=== PATIENT | male | born 1975 | race Caucasian/White ===

== ENCOUNTER 2018-08-20 06:12 | Day surgery (SDC) | payer OTHER ==
[2018-08-18 14:12] VITALS: BMI 27.2
--- NOTE | 2018-08-19 15:40 | HP ---
- Patient Scheduled date of Surgery: 08/20/18 Scheduled Surgical Procedure: Phacoemulsification and cataract extraction with PCIOL Affected Eye: Left Chief Complaint (Indication for surgery): Decreased vision affecting ADLs - Ocular History Other Eye History: Other (gl suspect) Eye Medications: vigamox Previous Eye Surgery: none - Medical History Illnesses: None Current Medications: Ambulatory Orders NK [No Known Home Medication] 08/18/18 Allergies/Adverse Reactions: Allergies Allergy/AdvReac Type Severity Reaction Status Date / Time No Known Allergies Allergy Verified 08/18/18 14:07 Ocular Examination - Best Corrected Visual Acuity Distance: Right eye: 20/20 Distance: Left eye: cf 4' - External/Slit Lamp Examination Abnormalities: none - Intraocular Pressure Intraocular Pressure - Right eye: 17 Intraocular Pressure-Left eye: 17 - Lens Lens: 1+ NS 1+ PSC 3-4+ ASC - Vitreous/Retina Vitreous/Retina: C:D 0.3 m/v wnl hazy view of periphery - Special Examination M - Right eye: -2.50 M - Left eye: -5.50 K - Right eye: 41/41.75 x 92 K - Left eye: 41/41.5 x 85 AL - Right eye: 25.26 AL - Left eye: 25.45 IOL bag: +20.0 D AUOOTO for myopia IOL sulcus: +19.0 MN60AC IOL AC: +16.5 AUOOTO - Impression Impression: Cataract Left Eye (ASC) - Plan Plan: Phacoemulsification and cataract extraction - IOL Left eye Post-hospital care will be provided in office on: 08/21/18
[2018-08-20] MEDS ORDERED: TROPICAMIDE 1% OPHTH SOLN 15 ML BOTTLE ONE (06:29)
[2018-08-20] MEDS ORDERED: CIPROFLOXACIN HCL 0.3% OPHTH 2.5ML BOTTLE ONE (06:29)
[2018-08-20] MEDS ORDERED: PHENYLEPHRINE 2.5% OPHTH SOLN 15 ML BOTTLE ONE (06:29)
[2018-08-20] MEDS ORDERED: KETOROLAC TROMETHAMINE 0.5% EYE DROP 1 DROP DROPS ONE (06:30)
[2018-08-20 06:42] VITALS: TEMP 97.9
[2018-08-20] MEDS: CIPROFLOXACIN HCL 0.3% OPHTH 2.5ML BOTTLE OP SCH ×2 (07:01→07:14)
[2018-08-20] MEDS: KETOROLAC TROMETHAMINE 0.5% EYE DROP 1 DROP DROPS OP SCH ×2 (07:01→07:14)
[2018-08-20] MEDS: PHENYLEPHRINE 2.5% OPHTH SOLN 15 ML BOTTLE OP SCH ×2 (07:01→07:14)
[2018-08-20] MEDS: TROPICAMIDE 1% OPHTH SOLN 15 ML BOTTLE OP SCH ×2 (07:01→07:14)
[2018-08-20] MEDS ORDERED: ACETYLCHOLINE 1:100 INTRA-OCUL 20 MG/2 ML KIT ONE (07:03)
[2018-08-20] MEDS ORDERED: CHONDROITIN SU A/HYALUR SOD 1 KIT ONE ×2 (07:03→08:47)
[2018-08-20] MEDS ORDERED: TOBRAMYCIN/DEXAMETHASONE OPHTH. OINTMENT 1 TUBE ONE (07:06)
[2018-08-20] MEDS ORDERED: LIDOCAINE HCL 2% JELLY (5 ML/TUBE) ONE (07:06)
[2018-08-20] MEDS ORDERED: LIDOCAINE HCL/PF 1% SDV 5ML VIAL ONE (07:07)
[2018-08-20] MEDS ORDERED: POVIDONE-IODINE 5% OPHTHALMIC PREP 30 ML SOLUTION ONE (07:07)
[2018-08-20] MEDS ORDERED: TRYPAN BLUE 0.5 ML DISP.SYRIN ONE (07:07)
[2018-08-20] MEDS ORDERED: EPINEPHrine/PF 1 MG/1 ML (1:1,000) AMPULE ONE ×2 (07:08→08:18)
[2018-08-20] MEDS ORDERED: MIDAZOLAM HCL 2 MG/2 ML SINGLE DOSE VIAL ONE ×2 (07:15→07:34)
--- NOTE | 2018-08-20 07:16 | HP ---
History & Physical Update - History History: No Change - Physical Physical: No Change - Assessment Assessment: No Change - Plan Plan: No Change (H and P reviewed from 08/13/[address] You, no changes)
[2018-08-20] MEDS ORDERED: ACETAMINOPHEN 325 MG TABLET (FP) PO PRN (07:30)
[2018-08-20] MEDS ORDERED: LIDOCAINE HCL 2% JELLY (5 ML/TUBE) TP ONE (07:35)
[2018-08-20] MEDS ORDERED: POVIDONE-IODINE 5% OPHTHALMIC PREP 30 ML SOLUTION OS ONE (07:40)
[2018-08-20] MEDS ORDERED: LIDOCAINE HCL 1% PRESERVATIVE FREE - 30ML VIAL IO ONE (07:47)
[2018-08-20] MEDS ORDERED: BSS (NA/CA/MG/K) BALANCED SALT SOLUTION OPHTH SOLN 15 ML BOTTLE IO ONE (07:47)
[2018-08-20] MEDS ORDERED: CHONDROITIN SU A/HYALUR SOD 1 KIT IO ONE ×3 (07:49→07:51)
[2018-08-20] MEDS ORDERED: TRYPAN BLUE 0.5 ML DISP.SYRIN TP ONE (07:50)
[2018-08-20] MEDS ORDERED: TOBRAMYCIN 0.3% OPHTH OINT 3.5 GM OS ONE (07:51)
[2018-08-20] MEDS ORDERED: EPINEPHrine/PF 1 MG/1 ML (1:1,000) AMPULE SQ ONE ×2 (07:51)
[2018-08-20] MEDS ORDERED: BSS (NA/CA/MG/K) BALANCED SALT SOLUTION OPHTH SOLN 15 ML BOTTLE OS ONE (07:59)
[2018-08-20] MEDS ORDERED: TETRACAINE 0.5% OPHTH SOLN 2 ML BOTTLE ONE ×2 (08:18→08:51)
--- NOTE | 2018-08-20 08:36 | OP ---
Ophthalmology Operative Note Pre-Operative Diagnosis: Cataract (Anterior subcapsular) Affected Eye: Left Operation: Phacoemulsification and cataract extraction with PCIOL (using 1:10, 000 epinephrine and trypan blue) Post-Operative Diagnosis: Other (hypermature cataract left eye) Manager Administrative: None Anesthesiologist: Rommel Bhatt Anesthesia: Topical Specimens Removed: none Estimated blood loss: <1 cc Drains & Tubes with Location: none Operative Report Dictated: Yes
--- NOTE | 2018-08-20 09:02 | OP ---
DATE OF OPERATION: 08/20/2018 PREOPERATIVE DIAGNOSIS: Anterior subcapsular cataract, left eye. POSTOPERATIVE DIAGNOSIS: Hypermature cataract, left eye. PROCEDURE: Phacoemulsification and cataract extraction with insertion of posterior chamber intraocular lens, left eye. SURGEON: Sosa Griggs MD ZOOLOGY TEACHER: None. ANESTHESIA: Topical. ANESTHESIOLOGIST: Dr. Bhatt. OPERATIVE PROCEDURE: The patient received 2% viscous lidocaine gel and was then gently sedated and prepped and draped in the usual sterile fashion so as to expose only the left eye. Ophthalmic Betadine was instilled into the inferior fornix. The lashes were taped out of the surgical field. An eyelid speculum was placed into the left eye. A paracentesis was made in inferior clear cornea at the limbus. Next, 0.5 mL of nonpreserved lidocaine 1% was injected into the anterior chamber, and 1 mL of dilute epinephrine 1:10,000 was injected into the anterior chamber. An air bubble was then placed into the anterior chamber, and trypan blue was dripped on the anterior capsular edge. Viscoelastic material was instilled into the anterior chamber via the paracentesis. A 2.4-mm keratome was then used to create the main incision in temporal clear cornea at the limbus. A continuous curvilinear capsulorrhexis was performed using cystotome and Utrata forceps. Hydrodissection of the lens cortex was gently performed using BSS on a cannula, and then, the phacoemulsification tip was inserted via the main wound and used to sculpt 2 perpendicular grooves into the lens nucleus. The nucleus was then cracked into 4 quadrants, and each quadrant was lifted out of the capsule into the iris plane and individually phacoemulsified. The remaining cortical material was then aspirated using the irrigation and aspiration port. The capsular bag was inflated using Provisc, and a preloaded AcrySof lens model [id number], power +20.0 diopters for myopia was injected into the capsular bag and centered using a Sinskey hook. The residual viscoelastic material was removed from the anterior chamber using irrigation and aspiration. The wound edges were hydrated using BSS. The wound was tested for leakage. It was found to be watertight. Therefore, TobraDex ointment was placed in the eye, speculum was removed from the eye, and a sterile dressing and shield were placed over the eye. The patient was transferred to the recovery room in stable condition, told to follow up in 1 day. SOSA GRIGGS M.D. [id number]
[2018-08-20 09:59] VITALS: BP 133/69; PULSE 70
== END 2018-08-20 09:58 | disposition home or self-care (01) ==
LOC: JASU-SURG 06:12
PROVIDERS: ATTEND Ophthalmology
PROC: 08RK3JZ Replacement of Left Lens with Synthetic Substitute, Percutaneous Approach (ICD-10-PCS; principal; 2018-08-20 07:30)
DX: H26.9 Unspecified cataract (principal)